=== PATIENT | female | born 1990 | race Caucasian/White ===

== ENCOUNTER 2017-02-11 09:55 | Emergency (ER) | payer MEDICAID ==
[~2017-02-11 09:55] MED LIST: ACETAMINOPHEN 160 MG PO; ALBUTEROL SULF8.5 G2 IH; APRISO0.375 G1 PO; ASACOL HD800 M1 PO; BENTYL20 M1 PO; CLINDAMYCIN HC300 M2 PO; FLAGYL500 M1 PO; HYDROCODON-ACE1 EA16 PO; IBUPROFEN600 M1 PO; LEVAQUIN500 M1 PO; LIALDA1.2 GM/TAB PO; LOPERAMIDE2 M2 PO; MOTRIN IB200 M1 PO; NORCO 5-325 TA1 EACH PO; OXYCODONE-ACET1 EAC3 PO; PERCOCET 5-3251 EACH PO; PREDNISONE10 M1; PREDNISONE10 M1 PO; PREDNISONE20 M1 PO; PREDNISONE5 M1 PO; PRENATAL1 EACH PO; PROAIR HFA8.5 GM IH; PROMETHAZINE-C118 ML PO; PROVENTIL HFA6.7 G1 INH; ULTRAM50 M1 PO; ZITHROMAX250 M1 PO; ZOFRAN ODT4 MG PO; ZOFRAN4 M2 PO; phenergan PO
[2017-02-11 09:56] LABS: URINE BILIRUBIN NEGATIVE (NEG); URINE BLOOD MODERATE (NEG); URINE GLUCOSE (UA) NEGATIVE (NEG); URINE KETONE NEGATIVE (NEG); URINE LEUKOCYTE ESTERASE POSITIVE (NEG); URINE NITRITE NEGATIVE (NEG); URINE PROTEIN SMALL (NEG); URINE SPECIFIC GRAVITY 1.015 (1.003-1.030)
[2017-02-11 09:57] LABS: URINE APPEARANCE HAZY; URINE COLOR YELLOW
[2017-02-11 09:57] LABS: BASO % 0.2 % (0-2); EOS % 1.5 % (0-7); EOSINOPHIL ABSOLUTE COUNT 0.2 tho/cmm (0.0-0.7); HCT-HEMATOCRIT 33.2 % (34.0-49.0); IMMATURE GRANULOCYTES ABSOLUTE 0.02 tho/cmm (0-0.03); IMMATURE GRANULOCYTES PERCENT 0.2 % (0-0.3); LYMPH % 16.8 % (20-45); LYMPH ABSOLUTE COUNT 1.9 tho/cmm (0.8-4.5); MCHC MEAN CORPUSCULAR HGB CONC 30.1 % (32.0-36.0); MCV (MEAN CELL VOLUME) 86.5 fl (82.0-96.0); MEAN PLATELET VOLUME 8.9 cmc (9.4-12.4); MONO % 6.2 % (0-12); MONOCYTE ABSOLUTE COUNT 0.7 tho/cmm (0.0-1.2); NEUTROPHIL ABSOLUTE COUNT 8.3 tho/cmm (1.6-8.0); NEUTROPHIL-AUTOMATED 8.3 tho/cmm (1.6-8.0); NEUTROPHILS % 75.1 % (40-80); PLATELET COUNT 338 tho/cmm (150-450); RED BLOOD COUNT 3.84 mil/cmm (4.00-5.20); RED CELL DISTRIBUTION WIDTH 16.1 % (12.4-16.4); WHITE BLOOD COUNT 11.1 tho/cmm (4.0-10.0)
[2017-02-11 10:03] LABS: URINE MUCUS 4+
[2017-02-11 10:05] LABS: PREGNANCY-SERUM NEGATIVE (NEGATIVE)
[2017-02-11 10:05] LABS: URINE AMORPHOUS 2+
[2017-02-11 10:11] LABS: ALB/GLOB RATIO 0.7 (0.8-2.0); ALBUMIN 2.9 g/dl (3.5-5.0); ALKALINE PHOSPHATASE 106 U/L (33-138); ALT/SGPT 19 U/L (12-78); ANION GAP 10 mmol/L (0-20); AST/SGOT 10 U/L (10-40); BILIRUBIN,TOTAL 0.3 mg/dl (0-1.5); BLOOD UREA NITROGEN 7 mg/dl (6-24); C-REACTIVE PROTEIN 4.8 mg/dl (0-0.9); CALCIUM 8.6 mg/dl (8.5-10.5); CARBON DIOXIDE-VENOUS 25 mmol/L (22-32); CHLORIDE 109 mmol/l (96-110); GLUCOSE 87 mg/dL (70-110); LIPASE 88 U/L (73-393); POTASSIUM 3.9 mmol/L (3.7-5.1); SODIUM 140 mmol/L (135-145); eGFR VALUE FOR BLACK 89 mL/Min
[2017-02-11] MEDS ORDERED: NORCO 5-325 TA1 EACH PO (11:49)
[2017-02-11] MEDS ORDERED: ZOFRAN4 M2 PO (11:49)
[2017-02-11] MEDS ORDERED: PREDNISONE10 M1 PO (11:49)
[2017-05-28] MEDS ORDERED: HYDROCODON-ACE1 EA16 PO (10:07)
[2017-05-28] MEDS ORDERED: ZOFRAN ODT4 MG PO ×2 (10:07→11:27)
[2017-05-28] MEDS ORDERED: RANITIDINE HCL150 M3 PO (10:07)
[2017-05-28] MEDS ORDERED: IBUPROFEN200 M2 PO (10:08)
[2017-06-13] MEDS ORDERED: NORCO 7.5-3251 EACH PO (13:58)
[2017-06-13] MEDS ORDERED: CIPRO500 M2 PO (13:58)
[2017-06-20] MEDS ORDERED: PROMETHAZINE HC25 M3 PO (13:43)
[2017-06-22] MEDS ORDERED: IBUPROFEN600 M1 PO (10:40)
[2017-07-02] MEDS ORDERED: PROMETHAZINE HC25 M3 PO (14:34)
[2017-07-23] MEDS ORDERED: NITROFURANTOIN100 MG PO (12:27)
[2017-08-01] MEDS ORDERED: DELTASONE20 MG PO (10:29)
[2017-08-08] MEDS ORDERED: NAPROXEN375 M1 PO (16:39)
[2017-08-08] MEDS ORDERED: IMURAN50 M1 PO (16:41)
[2017-08-08] MEDS ORDERED: PREDNISONE5 M1 PO (16:43)
[2017-08-08] MEDS ORDERED: COLESTIPOL HCL1 G2 PO (16:45)
== END 2017-02-11 12:05 ==
LOC: EDMED 09:55
PROVIDERS: Emergency Medicine
DX: K92.1 Melena (principal); R19.7 Diarrhea, unspecified; F17.210 Nicotine dependence, cigarettes, uncomplicated; Z90.49 Acquired absence of other specified parts of digestive tract
CPT/HCPCS: J1170; J2405; J7030; P9612

== ENCOUNTER 2017-02-19 09:57 | Emergency (ER) | payer MEDICAID ==
[2017-02-19 10:51] LABS: EOS % 0.1 % (0-7); HCT-HEMATOCRIT 40.1 % (34.0-49.0); HGB-HEMOGLOBIN 12.4 gm/dl (12.0-15.5); IMMATURE GRANULOCYTES PERCENT 0.7 % (0-0.3); LYMPH % 7.6 % (20-45); MCH (MEAN CORPUSCULAR HGB) 25.9 pg (28.0-32.0); MCHC MEAN CORPUSCULAR HGB CONC 30.9 % (32.0-36.0); MCV (MEAN CELL VOLUME) 83.7 fl (82.0-96.0); MEAN PLATELET VOLUME 9.1 cmc (9.4-12.4); MONOCYTE ABSOLUTE COUNT 1.1 tho/cmm (0.0-1.2); NEUTROPHIL ABSOLUTE COUNT 11.2 tho/cmm (1.6-8.0); NEUTROPHIL-AUTOMATED 11.2 tho/cmm (1.6-8.0); NEUTROPHILS % 83.6 % (40-80); PLATELET COUNT 381 tho/cmm (150-450); RED BLOOD COUNT 4.79 mil/cmm (4.00-5.20); RED CELL DISTRIBUTION WIDTH 15.9 % (12.4-16.4); WHITE BLOOD COUNT 13.4 tho/cmm (4.0-10.0)
[2017-02-19 11:05] LABS: PREGNANCY-SERUM NEGATIVE (NEGATIVE)
[2017-02-19 11:47] LABS: ANION GAP 16 mmol/L (0-20); BLOOD UREA NITROGEN 12 mg/dl (6-24); CALCIUM 9.6 mg/dl (8.5-10.5); CARBON DIOXIDE-VENOUS 23 mmol/L (22-32); CHLORIDE 104 mmol/l (96-110); CREATININE 1.09 mg/dl (0.50-1.10); GLUCOSE 102 mg/dL (70-110); POTASSIUM 4.3 mmol/L (3.7-5.1); SODIUM 139 mmol/L (135-145); eGFR VALUE FOR BLACK 81 mL/Min
[2017-05-28] MEDS ORDERED: RANITIDINE HCL150 M3 PO (10:07)
[2017-05-28] MEDS ORDERED: ZOFRAN ODT4 MG PO ×2 (10:07→11:27)
[2017-05-28] MEDS ORDERED: HYDROCODON-ACE1 EA16 PO (10:07)
[2017-05-28] MEDS ORDERED: IBUPROFEN200 M2 PO (10:08)
[2017-06-13] MEDS ORDERED: CIPRO500 M2 PO (13:58)
[2017-06-13] MEDS ORDERED: NORCO 7.5-3251 EACH PO (13:58)
[2017-06-20] MEDS ORDERED: PROMETHAZINE HC25 M3 PO (13:43)
[2017-06-22] MEDS ORDERED: IBUPROFEN600 M1 PO (10:40)
[2017-07-02] MEDS ORDERED: PROMETHAZINE HC25 M3 PO (14:34)
[2017-07-23] MEDS ORDERED: NITROFURANTOIN100 MG PO (12:27)
[2017-08-01] MEDS ORDERED: DELTASONE20 MG PO (10:29)
[2017-08-08] MEDS ORDERED: NAPROXEN375 M1 PO (16:39)
[2017-08-08] MEDS ORDERED: IMURAN50 M1 PO (16:41)
[2017-08-08] MEDS ORDERED: PREDNISONE5 M1 PO (16:43)
[2017-08-08] MEDS ORDERED: COLESTIPOL HCL1 G2 PO (16:45)
== END 2017-02-19 12:57 ==
LOC: EDMED 09:57
PROVIDERS: Emergency Medicine
DX: G43.909 Migraine, unspecified, not intractable, without status migrainosus (principal); J45.909 Unspecified asthma, uncomplicated
CPT/HCPCS: J0780; J1200; J7030

== ENCOUNTER 2017-02-26 09:39 | Emergency (ER) | payer MEDICAID ==
[2017-02-26 10:28] LABS: BASO % 0.1 % (0-2); EOS % 0.1 % (0-7); HCT-HEMATOCRIT 38.2 % (34.0-49.0); HGB-HEMOGLOBIN 11.9 gm/dl (12.0-15.5); IMMATURE GRANULOCYTES PERCENT 0.6 % (0-0.3); LYMPH % 18.4 % (20-45); LYMPH ABSOLUTE COUNT 2.9 tho/cmm (0.8-4.5); MCH (MEAN CORPUSCULAR HGB) 25.8 pg (28.0-32.0); MCHC MEAN CORPUSCULAR HGB CONC 31.2 % (32.0-36.0); MCV (MEAN CELL VOLUME) 82.7 fl (82.0-96.0); MEAN PLATELET VOLUME 9.2 cmc (9.4-12.4); MONO % 5.1 % (0-12); MONOCYTE ABSOLUTE COUNT 0.8 tho/cmm (0.0-1.2); NEUTROPHIL ABSOLUTE COUNT 12.1 tho/cmm (1.6-8.0); NEUTROPHIL-AUTOMATED 12.1 tho/cmm (1.6-8.0); NEUTROPHILS % 75.7 % (40-80); PLATELET COUNT 430 tho/cmm (150-450); RED BLOOD COUNT 4.62 mil/cmm (4.00-5.20); RED CELL DISTRIBUTION WIDTH 15.8 % (12.4-16.4)
[2017-02-26 10:30] LABS: ALB/GLOB RATIO 0.8 (0.8-2.0); ALBUMIN 3.4 g/dl (3.5-5.0); ALKALINE PHOSPHATASE 133 U/L (33-138); ALT/SGPT 101 U/L (12-78); ANION GAP 14 mmol/L (0-20); AST/SGOT 28 U/L (10-40); BILIRUBIN,TOTAL 0.5 mg/dl (0-1.5); BLOOD UREA NITROGEN 15 mg/dl (6-24); CALCIUM 9.3 mg/dl (8.5-10.5); CARBON DIOXIDE-VENOUS 23 mmol/L (22-32); CHLORIDE 105 mmol/l (96-110); CREATININE 0.98 mg/dl (0.50-1.10); GLUCOSE 119 mg/dL (70-110); LIPASE 96 U/L (73-393); POTASSIUM 3.6 mmol/L (3.7-5.1); PREGNANCY-SERUM NEGATIVE (NEGATIVE); SODIUM 138 mmol/L (135-145); eGFR VALUE FOR BLACK >90 mL/Min
[2017-02-26] MEDS ORDERED: ULTRAM50 M1 PO (11:12)
[2017-05-28] MEDS ORDERED: RANITIDINE HCL150 M3 PO (10:07)
[2017-05-28] MEDS ORDERED: HYDROCODON-ACE1 EA16 PO (10:07)
[2017-05-28] MEDS ORDERED: ZOFRAN ODT4 MG PO ×2 (10:07→11:27)
[2017-05-28] MEDS ORDERED: IBUPROFEN200 M2 PO (10:08)
[2017-06-13] MEDS ORDERED: NORCO 7.5-3251 EACH PO (13:58)
[2017-06-13] MEDS ORDERED: CIPRO500 M2 PO (13:58)
[2017-06-20] MEDS ORDERED: PROMETHAZINE HC25 M3 PO (13:43)
[2017-06-22] MEDS ORDERED: IBUPROFEN600 M1 PO (10:40)
[2017-07-02] MEDS ORDERED: PROMETHAZINE HC25 M3 PO (14:34)
[2017-07-23] MEDS ORDERED: NITROFURANTOIN100 MG PO (12:27)
[2017-08-01] MEDS ORDERED: DELTASONE20 MG PO (10:29)
[2017-08-08] MEDS ORDERED: NAPROXEN375 M1 PO (16:39)
[2017-08-08] MEDS ORDERED: IMURAN50 M1 PO (16:41)
[2017-08-08] MEDS ORDERED: PREDNISONE5 M1 PO (16:43)
[2017-08-08] MEDS ORDERED: COLESTIPOL HCL1 G2 PO (16:45)
== END 2017-02-26 11:58 ==
LOC: EDMED 09:39
PROVIDERS: Emergency Medicine
DX: K51.90 Ulcerative colitis, unspecified, without complications (principal); F17.210 Nicotine dependence, cigarettes, uncomplicated; Z90.49 Acquired absence of other specified parts of digestive tract
CPT/HCPCS: J1885; J2405; J7030

== ENCOUNTER 2017-03-07 09:12 | Emergency (ER) | payer MEDICAID ==
[2017-03-07] MEDS ORDERED: COLESTID1 GM PO (09:27)
[2017-03-07] MEDS ORDERED: ULTRAM50 M1 PO (09:28)
[2017-03-07] MEDS ORDERED: PERIDEX118 ML SSP (09:29)
[2017-03-07 10:16] LABS: URINE BILIRUBIN NEGATIVE (NEG); URINE BLOOD NEGATIVE (NEG); URINE GLUCOSE (UA) NEGATIVE (NEG); URINE KETONE NEGATIVE (NEG); URINE LEUKOCYTE ESTERASE POSITIVE (NEG); URINE NITRITE NEGATIVE (NEG); URINE PH 6.5 (5.0-8.0); URINE PROTEIN NEGATIVE (NEG); URINE SPECIFIC GRAVITY 1.015 (1.003-1.030)
[2017-03-07 10:17] LABS: BASO % 0.2 % (0-2); EOS % 0.7 % (0-7); EOSINOPHIL ABSOLUTE COUNT 0.1 tho/cmm (0.0-0.7); HCT-HEMATOCRIT 40.8 % (34.0-49.0); HGB-HEMOGLOBIN 12.8 gm/dl (12.0-15.5); IMMATURE GRANULOCYTES ABSOLUTE 0.05 tho/cmm (0-0.03); IMMATURE GRANULOCYTES PERCENT 0.3 % (0-0.3); LYMPH % 17.5 % (20-45); LYMPH ABSOLUTE COUNT 2.7 tho/cmm (0.8-4.5); MCHC MEAN CORPUSCULAR HGB CONC 31.4 % (32.0-36.0); MCV (MEAN CELL VOLUME) 82.8 fl (82.0-96.0); MEAN PLATELET VOLUME 8.9 cmc (9.4-12.4); MONO % 8.3 % (0-12); MONOCYTE ABSOLUTE COUNT 1.3 tho/cmm (0.0-1.2); NEUTROPHIL ABSOLUTE COUNT 11.2 tho/cmm (1.6-8.0); NEUTROPHIL-AUTOMATED 11.2 tho/cmm (1.6-8.0); PLATELET COUNT 399 tho/cmm (150-450); RED BLOOD COUNT 4.93 mil/cmm (4.00-5.20); RED CELL DISTRIBUTION WIDTH 16.9 % (12.4-16.4); URINE APPEARANCE CLEAR; URINE COLOR YELLOW; WHITE BLOOD COUNT 15.3 tho/cmm (4.0-10.0)
[2017-03-07 10:27] LABS: URINE RBC 0 /[HPF] (0-5); URINE WBC 0-4 /[HPF] (0-5)
[2017-03-07 10:28] LABS: ANION GAP 12 mmol/L (0-20); BLOOD UREA NITROGEN 10 mg/dl (6-24); CALCIUM 9.5 mg/dl (8.5-10.5); CARBON DIOXIDE-VENOUS 26 mmol/L (22-32); CHLORIDE 104 mmol/l (96-110); CREATININE 1.01 mg/dl (0.50-1.10); GLUCOSE 91 mg/dL (70-110); SODIUM 138 mmol/L (135-145); URINE BACTERIA 1+; URINE MUCUS 1+; eGFR VALUE FOR BLACK 88 mL/Min
[2017-03-07 10:36] LABS: POTASSIUM 4.4 mmol/L (3.7-5.1)
[2017-03-07] MEDS ORDERED: NORCO 5/3251 TAB PO (11:49)
[2017-03-07] MEDS ORDERED: ZOFRAN ODT4 MG PO (11:49)
[2017-05-28] MEDS ORDERED: RANITIDINE HCL150 M3 PO (10:07)
[2017-05-28] MEDS ORDERED: HYDROCODON-ACE1 EA16 PO (10:07)
[2017-05-28] MEDS ORDERED: ZOFRAN ODT4 MG PO ×2 (10:07→11:27)
[2017-05-28] MEDS ORDERED: IBUPROFEN200 M2 PO (10:08)
[2017-06-13] MEDS ORDERED: NORCO 7.5-3251 EACH PO (13:58)
[2017-06-13] MEDS ORDERED: CIPRO500 M2 PO (13:58)
[2017-06-20] MEDS ORDERED: PROMETHAZINE HC25 M3 PO (13:43)
[2017-06-22] MEDS ORDERED: IBUPROFEN600 M1 PO (10:40)
[2017-07-02] MEDS ORDERED: PROMETHAZINE HC25 M3 PO (14:34)
[2017-07-23] MEDS ORDERED: NITROFURANTOIN100 MG PO (12:27)
[2017-08-01] MEDS ORDERED: DELTASONE20 MG PO (10:29)
[2017-08-08] MEDS ORDERED: NAPROXEN375 M1 PO (16:39)
[2017-08-08] MEDS ORDERED: IMURAN50 M1 PO (16:41)
[2017-08-08] MEDS ORDERED: PREDNISONE5 M1 PO (16:43)
[2017-08-08] MEDS ORDERED: COLESTIPOL HCL1 G2 PO (16:45)
== END 2017-03-07 12:19 ==
LOC: EDMED 09:12
PROVIDERS: Emergency Medicine
DX: K50.90 Crohn's disease, unspecified, without complications (principal); R11.2 Nausea with vomiting, unspecified; K92.1 Melena; F17.210 Nicotine dependence, cigarettes, uncomplicated; Z90.49 Acquired absence of other specified parts of digestive tract
CPT/HCPCS: J1170; J2405; J7030

== ENCOUNTER 2017-03-15 09:02 | Emergency (ER) | payer MEDICAID ==
[~2017-03-15 09:02] MED LIST changes: +COLESTID1 GM PO; +NORCO 5/3251 TAB PO; +PERIDEX118 ML SSP
[2017-03-15] MEDS ORDERED: REMICADE100 MG IV (09:15)
[2017-03-15 10:11] LABS: BASO % 0.2 % (0-2); EOS % 2.3 % (0-7); EOSINOPHIL ABSOLUTE COUNT 0.2 tho/cmm (0.0-0.7); HCT-HEMATOCRIT 35.5 % (34.0-49.0); HGB-HEMOGLOBIN 11.3 gm/dl (12.0-15.5); IMMATURE GRANULOCYTES ABSOLUTE 0.04 tho/cmm (0-0.03); IMMATURE GRANULOCYTES PERCENT 0.5 % (0-0.3); LYMPH % 39.7 % (20-45); LYMPH ABSOLUTE COUNT 3.2 tho/cmm (0.8-4.5); MCHC MEAN CORPUSCULAR HGB CONC 31.8 % (32.0-36.0); MCV (MEAN CELL VOLUME) 81.8 fl (82.0-96.0); MEAN PLATELET VOLUME 8.9 cmc (9.4-12.4); MONO % 5.5 % (0-12); MONOCYTE ABSOLUTE COUNT 0.5 tho/cmm (0.0-1.2); NEUTROPHIL ABSOLUTE COUNT 4.2 tho/cmm (1.6-8.0); NEUTROPHIL-AUTOMATED 4.2 tho/cmm (1.6-8.0); NEUTROPHILS % 51.8 % (40-80); PLATELET COUNT 353 tho/cmm (150-450); RED BLOOD COUNT 4.34 mil/cmm (4.00-5.20); RED CELL DISTRIBUTION WIDTH 16.5 % (12.4-16.4); WHITE BLOOD COUNT 8.1 tho/cmm (4.0-10.0)
[2017-03-15 10:25] LABS: PREGNANCY-SERUM NEGATIVE (NEGATIVE)
[2017-03-15 10:27] LABS: ALB/GLOB RATIO 0.8 (0.8-2.0); ALBUMIN 3.4 g/dl (3.5-5.0); ALKALINE PHOSPHATASE 114 U/L (33-138); ALT/SGPT 32 U/L (12-78); ANION GAP 10 mmol/L (0-20); AST/SGOT 13 U/L (10-40); BILIRUBIN,TOTAL 0.2 mg/dl (0-1.5); BLOOD UREA NITROGEN 8 mg/dl (6-24); CALCIUM 9.3 mg/dl (8.5-10.5); CARBON DIOXIDE-VENOUS 27 mmol/L (22-32); CHLORIDE 109 mmol/l (96-110); CREATININE 0.85 mg/dl (0.50-1.10); GLUCOSE 109 mg/dL (70-110); LIPASE 94 U/L (73-393); SODIUM 142 mmol/L (135-145); eGFR VALUE FOR BLACK >90 mL/Min
[2017-03-15 10:42] LABS: URINE BILIRUBIN NEGATIVE (NEG); URINE BLOOD NEGATIVE (NEG); URINE GLUCOSE (UA) NEGATIVE (NEG); URINE KETONE NEGATIVE (NEG); URINE LEUKOCYTE ESTERASE POSITIVE (NEG); URINE NITRITE NEGATIVE (NEG); URINE PROTEIN NEGATIVE (NEG); URINE SPECIFIC GRAVITY 1.015 (1.003-1.030)
[2017-03-15 10:45] LABS: URINE APPEARANCE CLEAR; URINE COLOR YELLOW
[2017-03-15 10:48] LABS: URINE WBC RARE /[HPF] (0-5)
[2017-03-15 10:49] LABS: URINE BACTERIA 1+; URINE EPITHELIAL CELLS 0-3 /[HPF] (0-10)
[2017-03-15] MEDS ORDERED: PREDNISONE10 M1 PO (12:53)
[2017-03-15] MEDS ORDERED: NORCO 5-325 TA1 EACH PO (12:53)
[2017-05-28] MEDS ORDERED: HYDROCODON-ACE1 EA16 PO (10:07)
[2017-05-28] MEDS ORDERED: RANITIDINE HCL150 M3 PO (10:07)
[2017-05-28] MEDS ORDERED: ZOFRAN ODT4 MG PO ×2 (10:07→11:27)
[2017-05-28] MEDS ORDERED: IBUPROFEN200 M2 PO (10:08)
[2017-06-13] MEDS ORDERED: CIPRO500 M2 PO (13:58)
[2017-06-13] MEDS ORDERED: NORCO 7.5-3251 EACH PO (13:58)
[2017-06-20] MEDS ORDERED: PROMETHAZINE HC25 M3 PO (13:43)
[2017-06-22] MEDS ORDERED: IBUPROFEN600 M1 PO (10:40)
[2017-07-02] MEDS ORDERED: PROMETHAZINE HC25 M3 PO (14:34)
[2017-07-23] MEDS ORDERED: NITROFURANTOIN100 MG PO (12:27)
[2017-08-01] MEDS ORDERED: DELTASONE20 MG PO (10:29)
[2017-08-08] MEDS ORDERED: NAPROXEN375 M1 PO (16:39)
[2017-08-08] MEDS ORDERED: IMURAN50 M1 PO (16:41)
[2017-08-08] MEDS ORDERED: PREDNISONE5 M1 PO (16:43)
[2017-08-08] MEDS ORDERED: COLESTIPOL HCL1 G2 PO (16:45)
== END 2017-03-15 13:11 ==
LOC: EDMED 09:02
PROVIDERS: Emergency Medicine
DX: K50.90 Crohn's disease, unspecified, without complications (principal); J45.909 Unspecified asthma, uncomplicated; Z90.49 Acquired absence of other specified parts of digestive tract; Z79.51 Long term (current) use of inhaled steroids; Z79.899 Other long term (current) drug therapy; F17.200 Nicotine dependence, unspecified, uncomplicated
CPT/HCPCS: J1170; J2405; J7030; Q9967

== ENCOUNTER 2017-03-26 09:03 | Emergency (ER) | payer MEDICAID ==
[~2017-03-26 09:03] MED LIST changes: +REMICADE100 MG IV
[2017-03-26 09:39] LABS: URINE BILIRUBIN NEGATIVE (NEG); URINE BLOOD NEGATIVE (NEG); URINE GLUCOSE (UA) NEGATIVE (NEG); URINE KETONE NEGATIVE (NEG); URINE LEUKOCYTE ESTERASE POSITIVE (NEG); URINE NITRITE NEGATIVE (NEG); URINE PROTEIN NEGATIVE (NEG)
[2017-03-26 09:43] LABS: BASO % 0.6 % (0-2); BASO ABSOLUTE COUNT 0.1 tho/cmm (0.0-0.2); EOS % 1.6 % (0-7); EOSINOPHIL ABSOLUTE COUNT 0.1 tho/cmm (0.0-0.7); HCT-HEMATOCRIT 39.3 % (34.0-49.0); HGB-HEMOGLOBIN 12.5 gm/dl (12.0-15.5); LYMPH % 31.4 % (20-45); LYMPH ABSOLUTE COUNT 2.7 tho/cmm (0.8-4.5); MCH (MEAN CORPUSCULAR HGB) 26.2 pg (28.0-32.0); MCHC MEAN CORPUSCULAR HGB CONC 31.8 % (32.0-36.0); MCV (MEAN CELL VOLUME) 82.2 fl (82.0-96.0); MEAN PLATELET VOLUME 9.5 cmc (9.4-12.4); MONO % 7.1 % (0-12); MONOCYTE ABSOLUTE COUNT 0.6 tho/cmm (0.0-1.2); NEUTROPHIL ABSOLUTE COUNT 5.1 tho/cmm (1.6-8.0); NEUTROPHIL-AUTOMATED 5.1 tho/cmm (1.6-8.0); NEUTROPHILS % 59.3 % (40-80); PLATELET COUNT 407 tho/cmm (150-450); RED BLOOD COUNT 4.78 mil/cmm (4.00-5.20); RED CELL DISTRIBUTION WIDTH 16.4 % (12.4-16.4); WHITE BLOOD COUNT 8.6 tho/cmm (4.0-10.0)
[2017-03-26 09:46] LABS: URINE APPEARANCE CLEAR; URINE COLOR YELLOW
[2017-03-26 09:53] LABS: URINE BACTERIA 1+; URINE RBC 0 /[HPF] (0-5)
[2017-03-26 10:08] LABS: ANION GAP 14 mmol/L (0-20); BLOOD UREA NITROGEN 8 mg/dl (6-24); CALCIUM 9.5 mg/dl (8.5-10.5); CARBON DIOXIDE-VENOUS 27 mmol/L (22-32); CHLORIDE 106 mmol/l (96-110); CREATININE 1.03 mg/dl (0.50-1.10); GLUCOSE 93 mg/dL (70-110); POTASSIUM 4.5 mmol/L (3.7-5.1); SODIUM 142 mmol/L (135-145); eGFR VALUE FOR BLACK 86 mL/Min
[2017-03-26] MEDS ORDERED: ZOFRAN ODT4 MG PO (10:23)
[2017-05-28] MEDS ORDERED: ZOFRAN ODT4 MG PO ×2 (10:07→11:27)
[2017-05-28] MEDS ORDERED: RANITIDINE HCL150 M3 PO (10:07)
[2017-05-28] MEDS ORDERED: HYDROCODON-ACE1 EA16 PO (10:07)
[2017-05-28] MEDS ORDERED: IBUPROFEN200 M2 PO (10:08)
[2017-06-13] MEDS ORDERED: NORCO 7.5-3251 EACH PO (13:58)
[2017-06-13] MEDS ORDERED: CIPRO500 M2 PO (13:58)
[2017-06-20] MEDS ORDERED: PROMETHAZINE HC25 M3 PO (13:43)
[2017-06-22] MEDS ORDERED: IBUPROFEN600 M1 PO (10:40)
[2017-07-02] MEDS ORDERED: PROMETHAZINE HC25 M3 PO (14:34)
[2017-07-23] MEDS ORDERED: NITROFURANTOIN100 MG PO (12:27)
[2017-08-01] MEDS ORDERED: DELTASONE20 MG PO (10:29)
[2017-08-08] MEDS ORDERED: NAPROXEN375 M1 PO (16:39)
[2017-08-08] MEDS ORDERED: IMURAN50 M1 PO (16:41)
[2017-08-08] MEDS ORDERED: PREDNISONE5 M1 PO (16:43)
[2017-08-08] MEDS ORDERED: COLESTIPOL HCL1 G2 PO (16:45)
== END 2017-03-26 10:37 ==
LOC: EDMED 09:03
PROVIDERS: Emergency Medicine
DX: R42 Dizziness and giddiness (principal); R11.0 Nausea; R06.02 Shortness of breath; J45.909 Unspecified asthma, uncomplicated; F17.210 Nicotine dependence, cigarettes, uncomplicated; Z79.51 Long term (current) use of inhaled steroids
CPT/HCPCS: J2405; J7030

== ENCOUNTER 2017-04-02 09:53 | Emergency (ER) | payer MEDICAID ==
[2017-04-02 10:19] LABS: URINE APPEARANCE CLEAR; URINE BILIRUBIN NEGATIVE (NEG); URINE BLOOD SMALL (NEG); URINE COLOR DARK YELLOW; URINE GLUCOSE (UA) NEGATIVE (NEG); URINE KETONE NEGATIVE (NEG); URINE LEUKOCYTE ESTERASE NEGATIVE (NEG); URINE NITRITE NEGATIVE (NEG); URINE PROTEIN NEGATIVE (NEG); URINE SPECIFIC GRAVITY 1.025 (1.003-1.030)
[2017-04-02 10:27] LABS: URINE BACTERIA 1+
[2017-04-02 12:01] LABS: BASO % 0.2 % (0-2); EOS % 1.6 % (0-7); EOSINOPHIL ABSOLUTE COUNT 0.1 tho/cmm (0.0-0.7); HGB-HEMOGLOBIN 12.2 gm/dl (12.0-15.5); IMMATURE GRANULOCYTES ABSOLUTE 0.01 tho/cmm (0-0.03); IMMATURE GRANULOCYTES PERCENT 0.1 % (0-0.3); LYMPH % 32.9 % (20-45); LYMPH ABSOLUTE COUNT 2.7 tho/cmm (0.8-4.5); MCH (MEAN CORPUSCULAR HGB) 25.6 pg (28.0-32.0); MCHC MEAN CORPUSCULAR HGB CONC 31.3 % (32.0-36.0); MCV (MEAN CELL VOLUME) 81.8 fl (82.0-96.0); MEAN PLATELET VOLUME 9.7 cmc (9.4-12.4); MONOCYTE ABSOLUTE COUNT 0.6 tho/cmm (0.0-1.2); NEUTROPHIL ABSOLUTE COUNT 4.8 tho/cmm (1.6-8.0); NEUTROPHIL-AUTOMATED 4.8 tho/cmm (1.6-8.0); NEUTROPHILS % 58.2 % (40-80); PLATELET COUNT 367 tho/cmm (150-450); RED BLOOD COUNT 4.77 mil/cmm (4.00-5.20); RED CELL DISTRIBUTION WIDTH 16.6 % (12.4-16.4); WHITE BLOOD COUNT 8.2 tho/cmm (4.0-10.0)
[2017-04-02 12:15] LABS: ALBUMIN 3.9 g/dl (3.5-5.0); ALKALINE PHOSPHATASE 123 U/L (33-138); ALT/SGPT 41 U/L (12-78); ANION GAP 13 mmol/L (0-20); AST/SGOT 24 U/L (10-40); BILIRUBIN,TOTAL 0.3 mg/dl (0-1.5); BLOOD UREA NITROGEN 6 mg/dl (6-24); CALCIUM 9.4 mg/dl (8.5-10.5); CARBON DIOXIDE-VENOUS 23 mmol/L (22-32); CHLORIDE 107 mmol/l (96-110); CREATININE 0.86 mg/dl (0.50-1.10); GLUCOSE 90 mg/dL (70-110); LIPASE 82 U/L (73-393); SODIUM 139 mmol/L (135-145); eGFR VALUE FOR BLACK >90 mL/Min
[2017-04-02] MEDS ORDERED: NORCO 5-325 TA1 EACH PO (14:08)
[2017-05-28] MEDS ORDERED: HYDROCODON-ACE1 EA16 PO (10:07)
[2017-05-28] MEDS ORDERED: ZOFRAN ODT4 MG PO ×2 (10:07→11:27)
[2017-05-28] MEDS ORDERED: RANITIDINE HCL150 M3 PO (10:07)
[2017-05-28] MEDS ORDERED: IBUPROFEN200 M2 PO (10:08)
[2017-06-13] MEDS ORDERED: CIPRO500 M2 PO (13:58)
[2017-06-13] MEDS ORDERED: NORCO 7.5-3251 EACH PO (13:58)
[2017-06-20] MEDS ORDERED: PROMETHAZINE HC25 M3 PO (13:43)
[2017-06-22] MEDS ORDERED: IBUPROFEN600 M1 PO (10:40)
[2017-07-02] MEDS ORDERED: PROMETHAZINE HC25 M3 PO (14:34)
[2017-07-23] MEDS ORDERED: NITROFURANTOIN100 MG PO (12:27)
[2017-08-01] MEDS ORDERED: DELTASONE20 MG PO (10:29)
[2017-08-08] MEDS ORDERED: NAPROXEN375 M1 PO (16:39)
[2017-08-08] MEDS ORDERED: IMURAN50 M1 PO (16:41)
[2017-08-08] MEDS ORDERED: PREDNISONE5 M1 PO (16:43)
[2017-08-08] MEDS ORDERED: COLESTIPOL HCL1 G2 PO (16:45)
== END 2017-04-02 14:16 ==
LOC: EDMED 09:53
PROVIDERS: Emergency Medicine
DX: R10.9 Unspecified abdominal pain (principal); R11.0 Nausea; J45.909 Unspecified asthma, uncomplicated; Z90.49 Acquired absence of other specified parts of digestive tract; F17.200 Nicotine dependence, unspecified, uncomplicated; Z79.899 Other long term (current) drug therapy
CPT/HCPCS: J1170; J2405

== ENCOUNTER 2017-04-11 09:19 | Emergency (ER) | payer MEDICAID ==
[2017-04-11] MEDS ORDERED: PREDNISONE10 M1 PO (09:43)
[2017-04-11] MEDS ORDERED: CLARITIN10 M6 PO (09:43)
[2017-04-11] MEDS ORDERED: ZYRTEC10 M7 PO (09:43)
[2017-04-11 10:37] LABS: BASO % 0.3 % (0-2); EOS % 2.8 % (0-7); EOSINOPHIL ABSOLUTE COUNT 0.2 tho/cmm (0.0-0.7); HCT-HEMATOCRIT 36.8 % (34.0-49.0); HGB-HEMOGLOBIN 11.6 gm/dl (12.0-15.5); IMMATURE GRANULOCYTES ABSOLUTE 0.01 tho/cmm (0-0.03); IMMATURE GRANULOCYTES PERCENT 0.2 % (0-0.3); LYMPH % 35.9 % (20-45); LYMPH ABSOLUTE COUNT 2.2 tho/cmm (0.8-4.5); MCH (MEAN CORPUSCULAR HGB) 25.9 pg (28.0-32.0); MCHC MEAN CORPUSCULAR HGB CONC 31.5 % (32.0-36.0); MCV (MEAN CELL VOLUME) 82.1 fl (82.0-96.0); MEAN PLATELET VOLUME 9.4 cmc (9.4-12.4); MONO % 5.7 % (0-12); MONOCYTE ABSOLUTE COUNT 0.3 tho/cmm (0.0-1.2); NEUTROPHIL ABSOLUTE COUNT 3.3 tho/cmm (1.6-8.0); NEUTROPHIL-AUTOMATED 3.3 tho/cmm (1.6-8.0); NEUTROPHILS % 55.1 % (40-80); PLATELET COUNT 278 tho/cmm (150-450); RED BLOOD COUNT 4.48 mil/cmm (4.00-5.20); RED CELL DISTRIBUTION WIDTH 16.8 % (12.4-16.4)
[2017-04-11 10:53] LABS: ALBUMIN 3.5 g/dl (3.5-5.0); ALKALINE PHOSPHATASE 120 U/L (33-138); ALT/SGPT 27 U/L (12-78); ANION GAP 13 mmol/L (0-20); AST/SGOT 15 U/L (10-40); BILIRUBIN,TOTAL 0.3 mg/dl (0-1.5); BLOOD UREA NITROGEN 10 mg/dl (6-24); CALCIUM 8.7 mg/dl (8.5-10.5); CARBON DIOXIDE-VENOUS 24 mmol/L (22-32); CHLORIDE 109 mmol/l (96-110); CREATININE 0.92 mg/dl (0.50-1.10); GLUCOSE 92 mg/dL (70-110); SODIUM 142 mmol/L (135-145); eGFR VALUE FOR BLACK >90 mL/Min
[2017-04-11] MEDS ORDERED: NORCO 5-325 TA1 EACH PO (12:40)
[2017-05-28] MEDS ORDERED: RANITIDINE HCL150 M3 PO (10:07)
[2017-05-28] MEDS ORDERED: HYDROCODON-ACE1 EA16 PO (10:07)
[2017-05-28] MEDS ORDERED: ZOFRAN ODT4 MG PO ×2 (10:07→11:27)
[2017-05-28] MEDS ORDERED: IBUPROFEN200 M2 PO (10:08)
[2017-06-13] MEDS ORDERED: NORCO 7.5-3251 EACH PO (13:58)
[2017-06-13] MEDS ORDERED: CIPRO500 M2 PO (13:58)
[2017-06-20] MEDS ORDERED: PROMETHAZINE HC25 M3 PO (13:43)
[2017-06-22] MEDS ORDERED: IBUPROFEN600 M1 PO (10:40)
[2017-07-02] MEDS ORDERED: PROMETHAZINE HC25 M3 PO (14:34)
[2017-07-23] MEDS ORDERED: NITROFURANTOIN100 MG PO (12:27)
[2017-08-01] MEDS ORDERED: DELTASONE20 MG PO (10:29)
[2017-08-08] MEDS ORDERED: NAPROXEN375 M1 PO (16:39)
[2017-08-08] MEDS ORDERED: IMURAN50 M1 PO (16:41)
[2017-08-08] MEDS ORDERED: PREDNISONE5 M1 PO (16:43)
[2017-08-08] MEDS ORDERED: COLESTIPOL HCL1 G2 PO (16:45)
== END 2017-04-11 12:52 ==
LOC: EDMED 09:19
PROVIDERS: Family Medicine
DX: K50.90 Crohn's disease, unspecified, without complications (principal); R07.89 Other chest pain; K21.9 Gastro-esophageal reflux disease without esophagitis; F17.210 Nicotine dependence, cigarettes, uncomplicated; Z90.49 Acquired absence of other specified parts of digestive tract; Z79.899 Other long term (current) drug therapy; Z88.0 Allergy status to penicillin; Z88.8 Allergy status to other drugs, medicaments and biological substances
CPT/HCPCS: J1170; J2405; J7030; Q9967

== ENCOUNTER 2017-04-23 09:39 | Emergency (ER) | payer MEDICAID ==
[~2017-04-23 09:39] MED LIST changes: +CLARITIN10 M6 PO; +ZYRTEC10 M7 PO
[2017-04-23 10:20] LABS: BASO % 0.5 % (0-2); EOS % 4.2 % (0-7); EOSINOPHIL ABSOLUTE COUNT 0.2 tho/cmm (0.0-0.7); HCT-HEMATOCRIT 40.2 % (34.0-49.0); HGB-HEMOGLOBIN 12.7 gm/dl (12.0-15.5); IMMATURE GRANULOCYTES ABSOLUTE 0.01 tho/cmm (0-0.03); IMMATURE GRANULOCYTES PERCENT 0.2 % (0-0.3); LYMPH % 42.2 % (20-45); LYMPH ABSOLUTE COUNT 2.4 tho/cmm (0.8-4.5); MCH (MEAN CORPUSCULAR HGB) 26.1 pg (28.0-32.0); MCHC MEAN CORPUSCULAR HGB CONC 31.6 % (32.0-36.0); MCV (MEAN CELL VOLUME) 82.7 fl (82.0-96.0); MEAN PLATELET VOLUME 9.8 cmc (9.4-12.4); MONO % 8.3 % (0-12); MONOCYTE ABSOLUTE COUNT 0.5 tho/cmm (0.0-1.2); NEUTROPHIL ABSOLUTE COUNT 2.6 tho/cmm (1.6-8.0); NEUTROPHIL-AUTOMATED 2.6 tho/cmm (1.6-8.0); NEUTROPHILS % 44.6 % (40-80); PLATELET COUNT 339 tho/cmm (150-450); RED BLOOD COUNT 4.86 mil/cmm (4.00-5.20); RED CELL DISTRIBUTION WIDTH 15.8 % (12.4-16.4); WHITE BLOOD COUNT 5.8 tho/cmm (4.0-10.0)
[2017-04-23 10:30] LABS: ALBUMIN 3.6 g/dl (3.5-5.0); ALKALINE PHOSPHATASE 130 U/L (33-138); ALT/SGPT 46 U/L (12-78); ANION GAP 16 mmol/L (0-20); AST/SGOT 31 U/L (10-40); BILIRUBIN,TOTAL 0.3 mg/dl (0-1.5); BLOOD UREA NITROGEN 6 mg/dl (6-24); C-REACTIVE PROTEIN 0.4 mg/dl (0-0.9); CALCIUM 8.6 mg/dl (8.5-10.5); CARBON DIOXIDE-VENOUS 22 mmol/L (22-32); CHLORIDE 108 mmol/l (96-110); CREATININE 0.99 mg/dl (0.50-1.10); GLUCOSE 107 mg/dL (70-110); LIPASE 70 U/L (73-393); POTASSIUM 4.1 mmol/L (3.7-5.1); SODIUM 142 mmol/L (135-145); eGFR VALUE FOR BLACK >90 mL/Min
[2017-04-23 10:36] LABS: URINE BILIRUBIN NEGATIVE (NEG); URINE BLOOD SMALL (NEG); URINE GLUCOSE (UA) NEGATIVE (NEG); URINE KETONE NEGATIVE (NEG); URINE LEUKOCYTE ESTERASE POSITIVE (NEG); URINE NITRITE NEGATIVE (NEG); URINE PH 6.5 (5.0-8.0); URINE PROTEIN NEGATIVE (NEG)
[2017-04-23 10:38] LABS: URINE APPEARANCE CLEAR; URINE COLOR YELLOW
[2017-04-23] MEDS ORDERED: ZOFRAN4 M2 PO (11:16)
[2017-04-23] MEDS ORDERED: NORCO 5-325 TA1 EACH PO (11:16)
[2017-05-28] MEDS ORDERED: ZOFRAN ODT4 MG PO ×2 (10:07→11:27)
[2017-05-28] MEDS ORDERED: RANITIDINE HCL150 M3 PO (10:07)
[2017-05-28] MEDS ORDERED: HYDROCODON-ACE1 EA16 PO (10:07)
[2017-05-28] MEDS ORDERED: IBUPROFEN200 M2 PO (10:08)
[2017-06-13] MEDS ORDERED: NORCO 7.5-3251 EACH PO (13:58)
[2017-06-13] MEDS ORDERED: CIPRO500 M2 PO (13:58)
[2017-06-20] MEDS ORDERED: PROMETHAZINE HC25 M3 PO (13:43)
[2017-06-22] MEDS ORDERED: IBUPROFEN600 M1 PO (10:40)
[2017-07-02] MEDS ORDERED: PROMETHAZINE HC25 M3 PO (14:34)
[2017-07-23] MEDS ORDERED: NITROFURANTOIN100 MG PO (12:27)
[2017-08-01] MEDS ORDERED: DELTASONE20 MG PO (10:29)
[2017-08-08] MEDS ORDERED: NAPROXEN375 M1 PO (16:39)
[2017-08-08] MEDS ORDERED: IMURAN50 M1 PO (16:41)
[2017-08-08] MEDS ORDERED: PREDNISONE5 M1 PO (16:43)
[2017-08-08] MEDS ORDERED: COLESTIPOL HCL1 G2 PO (16:45)
== END 2017-04-23 11:24 ==
LOC: EDMED 09:39
PROVIDERS: Emergency Medicine
DX: R10.9 Unspecified abdominal pain (principal); R11.2 Nausea with vomiting, unspecified; R19.7 Diarrhea, unspecified; F17.210 Nicotine dependence, cigarettes, uncomplicated; Z87.19 Personal history of other diseases of the digestive system; Z90.49 Acquired absence of other specified parts of digestive tract
CPT/HCPCS: J1170; J2405; J7030

== ENCOUNTER 2017-04-30 09:39 | Emergency (ER) | payer MEDICAID ==
[2017-04-30 10:37] LABS: BASO % 0.3 % (0-2); EOS % 2.8 % (0-7); EOSINOPHIL ABSOLUTE COUNT 0.2 tho/cmm (0.0-0.7); HGB-HEMOGLOBIN 12.7 gm/dl (12.0-15.5); IMMATURE GRANULOCYTES ABSOLUTE 0.01 tho/cmm (0-0.03); IMMATURE GRANULOCYTES PERCENT 0.2 % (0-0.3); LYMPH % 35.1 % (20-45); LYMPH ABSOLUTE COUNT 2.1 tho/cmm (0.8-4.5); MCH (MEAN CORPUSCULAR HGB) 26.5 pg (28.0-32.0); MCHC MEAN CORPUSCULAR HGB CONC 31.8 % (32.0-36.0); MCV (MEAN CELL VOLUME) 83.3 fl (82.0-96.0); MEAN PLATELET VOLUME 9.7 cmc (9.4-12.4); MONOCYTE ABSOLUTE COUNT 0.4 tho/cmm (0.0-1.2); NEUTROPHIL ABSOLUTE COUNT 3.3 tho/cmm (1.6-8.0); NEUTROPHIL-AUTOMATED 3.3 tho/cmm (1.6-8.0); NEUTROPHILS % 54.6 % (40-80); PLATELET COUNT 301 tho/cmm (150-450); RED CELL DISTRIBUTION WIDTH 15.7 % (12.4-16.4)
[2017-04-30 10:57] LABS: ANION GAP 12 mmol/L (0-20); BLOOD UREA NITROGEN 8 mg/dl (6-24); CALCIUM 9.3 mg/dl (8.5-10.5); CARBON DIOXIDE-VENOUS 25 mmol/L (22-32); CHLORIDE 107 mmol/l (96-110); CREATININE 1.01 mg/dl (0.50-1.10); GLUCOSE 108 mg/dL (70-110); POTASSIUM 4.1 mmol/L (3.7-5.1); SODIUM 140 mmol/L (135-145); eGFR VALUE FOR BLACK 88 mL/Min
[2017-04-30 11:30] LABS: ALBUMIN 3.7 g/dl (3.5-5.0); ALKALINE PHOSPHATASE 118 U/L (33-138); ALT/SGPT 64 U/L (12-78); AST/SGOT 38 U/L (10-40); BILIRUBIN,DIRECT <0.1 mg/dl (0.0-0.3); BILIRUBIN,INDIRECT 0.2 mg/dL (0.0-1.0); BILIRUBIN,TOTAL 0.3 mg/dl (0-1.5); LIPASE 84 U/L (73-393)
[2017-04-30] MEDS ORDERED: ZITHROMAX250 M1 PO (12:08)
[2017-05-28] MEDS ORDERED: RANITIDINE HCL150 M3 PO (10:07)
[2017-05-28] MEDS ORDERED: ZOFRAN ODT4 MG PO ×2 (10:07→11:27)
[2017-05-28] MEDS ORDERED: HYDROCODON-ACE1 EA16 PO (10:07)
[2017-05-28] MEDS ORDERED: IBUPROFEN200 M2 PO (10:08)
[2017-06-13] MEDS ORDERED: CIPRO500 M2 PO (13:58)
[2017-06-13] MEDS ORDERED: NORCO 7.5-3251 EACH PO (13:58)
[2017-06-20] MEDS ORDERED: PROMETHAZINE HC25 M3 PO (13:43)
[2017-06-22] MEDS ORDERED: IBUPROFEN600 M1 PO (10:40)
[2017-07-02] MEDS ORDERED: PROMETHAZINE HC25 M3 PO (14:34)
[2017-07-23] MEDS ORDERED: NITROFURANTOIN100 MG PO (12:27)
[2017-08-01] MEDS ORDERED: DELTASONE20 MG PO (10:29)
[2017-08-08] MEDS ORDERED: NAPROXEN375 M1 PO (16:39)
[2017-08-08] MEDS ORDERED: IMURAN50 M1 PO (16:41)
[2017-08-08] MEDS ORDERED: PREDNISONE5 M1 PO (16:43)
[2017-08-08] MEDS ORDERED: COLESTIPOL HCL1 G2 PO (16:45)
== END 2017-04-30 12:26 ==
LOC: EDMED 09:39
PROVIDERS: Emergency Medicine
DX: J18.9 Pneumonia, unspecified organism (principal); R10.11 Right upper quadrant pain; R10.31 Right lower quadrant pain; G89.29 Other chronic pain; F17.210 Nicotine dependence, cigarettes, uncomplicated; Z90.49 Acquired absence of other specified parts of digestive tract; Z79.899 Other long term (current) drug therapy
CPT/HCPCS: J1170; J2405; J7030

== ENCOUNTER 2017-05-08 10:17 | Emergency (ER) | payer MEDICAID ==
[2017-05-10] MEDS ORDERED: ZOFRAN ODT4 MG PO (12:36)
[2017-05-10] MEDS ORDERED: NORCO 5/3251 TAB PO (12:36)
[2017-05-28] MEDS ORDERED: HYDROCODON-ACE1 EA16 PO (10:07)
[2017-05-28] MEDS ORDERED: RANITIDINE HCL150 M3 PO (10:07)
[2017-05-28] MEDS ORDERED: ZOFRAN ODT4 MG PO ×2 (10:07→11:27)
[2017-05-28] MEDS ORDERED: IBUPROFEN200 M2 PO (10:08)
[2017-06-13] MEDS ORDERED: CIPRO500 M2 PO (13:58)
[2017-06-13] MEDS ORDERED: NORCO 7.5-3251 EACH PO (13:58)
[2017-06-20] MEDS ORDERED: PROMETHAZINE HC25 M3 PO (13:43)
[2017-06-22] MEDS ORDERED: IBUPROFEN600 M1 PO (10:40)
[2017-07-02] MEDS ORDERED: PROMETHAZINE HC25 M3 PO (14:34)
[2017-07-23] MEDS ORDERED: NITROFURANTOIN100 MG PO (12:27)
[2017-08-01] MEDS ORDERED: DELTASONE20 MG PO (10:29)
[2017-08-08] MEDS ORDERED: NAPROXEN375 M1 PO (16:39)
[2017-08-08] MEDS ORDERED: IMURAN50 M1 PO (16:41)
[2017-08-08] MEDS ORDERED: PREDNISONE5 M1 PO (16:43)
[2017-08-08] MEDS ORDERED: COLESTIPOL HCL1 G2 PO (16:45)
== END 2017-05-09 00:26 | disposition left against medical advice (07) ==
LOC: EDMED 10:17
DX: Z53.21 Procedure and treatment not carried out due to patient leaving prior to being seen by health care provider (principal)

== ENCOUNTER 2017-05-10 09:13 | Emergency (ER) | payer MEDICAID ==
[2017-05-10 10:18] LABS: BASO % 0.2 % (0-2); EOS % 2.8 % (0-7); EOSINOPHIL ABSOLUTE COUNT 0.2 tho/cmm (0.0-0.7); HCT-HEMATOCRIT 40.3 % (34.0-49.0); HGB-HEMOGLOBIN 13.1 gm/dl (12.0-15.5); IMMATURE GRANULOCYTES ABSOLUTE 0.02 tho/cmm (0-0.03); IMMATURE GRANULOCYTES PERCENT 0.2 % (0-0.3); LYMPH % 35.4 % (20-45); LYMPH ABSOLUTE COUNT 2.9 tho/cmm (0.8-4.5); MCH (MEAN CORPUSCULAR HGB) 26.8 pg (28.0-32.0); MCHC MEAN CORPUSCULAR HGB CONC 32.5 % (32.0-36.0); MCV (MEAN CELL VOLUME) 82.6 fl (82.0-96.0); MEAN PLATELET VOLUME 9.7 cmc (9.4-12.4); MONO % 4.1 % (0-12); MONOCYTE ABSOLUTE COUNT 0.3 tho/cmm (0.0-1.2); NEUTROPHIL ABSOLUTE COUNT 4.6 tho/cmm (1.6-8.0); NEUTROPHIL-AUTOMATED 4.6 tho/cmm (1.6-8.0); NEUTROPHILS % 57.3 % (40-80); PLATELET COUNT 318 tho/cmm (150-450); RED BLOOD COUNT 4.88 mil/cmm (4.00-5.20); RED CELL DISTRIBUTION WIDTH 15.4 % (12.4-16.4); WHITE BLOOD COUNT 8.1 tho/cmm (4.0-10.0)
[2017-05-10 10:30] LABS: ANION GAP 13 mmol/L (0-20); BLOOD UREA NITROGEN 9 mg/dl (6-24); CALCIUM 9.1 mg/dl (8.5-10.5); CARBON DIOXIDE-VENOUS 24 mmol/L (22-32); CHLORIDE 106 mmol/l (96-110); GLUCOSE 90 mg/dL (70-110); POTASSIUM 4.1 mmol/L (3.7-5.1); SODIUM 139 mmol/L (135-145); eGFR VALUE FOR BLACK >90 mL/Min
[2017-05-10] MEDS ORDERED: NORCO 5/3251 TAB PO (12:36)
[2017-05-10] MEDS ORDERED: ZOFRAN ODT4 MG PO (12:36)
[2017-05-28] MEDS ORDERED: ZOFRAN ODT4 MG PO ×2 (10:07→11:27)
[2017-05-28] MEDS ORDERED: RANITIDINE HCL150 M3 PO (10:07)
[2017-05-28] MEDS ORDERED: HYDROCODON-ACE1 EA16 PO (10:07)
[2017-05-28] MEDS ORDERED: IBUPROFEN200 M2 PO (10:08)
[2017-06-13] MEDS ORDERED: NORCO 7.5-3251 EACH PO (13:58)
[2017-06-13] MEDS ORDERED: CIPRO500 M2 PO (13:58)
[2017-06-20] MEDS ORDERED: PROMETHAZINE HC25 M3 PO (13:43)
[2017-06-22] MEDS ORDERED: IBUPROFEN600 M1 PO (10:40)
[2017-07-02] MEDS ORDERED: PROMETHAZINE HC25 M3 PO (14:34)
[2017-07-23] MEDS ORDERED: NITROFURANTOIN100 MG PO (12:27)
[2017-08-01] MEDS ORDERED: DELTASONE20 MG PO (10:29)
[2017-08-08] MEDS ORDERED: NAPROXEN375 M1 PO (16:39)
[2017-08-08] MEDS ORDERED: IMURAN50 M1 PO (16:41)
[2017-08-08] MEDS ORDERED: PREDNISONE5 M1 PO (16:43)
[2017-08-08] MEDS ORDERED: COLESTIPOL HCL1 G2 PO (16:45)
== END 2017-05-10 12:40 ==
LOC: EDMED 09:13
PROVIDERS: Emergency Medicine
DX: K50.90 Crohn's disease, unspecified, without complications (principal); F17.200 Nicotine dependence, unspecified, uncomplicated; Z90.49 Acquired absence of other specified parts of digestive tract
CPT/HCPCS: J1170; J1200; J2405; J7030

== ENCOUNTER 2017-05-21 09:14 | Emergency (ER) | payer MEDICAID ==
[2017-05-21 10:04] LABS: URINE BILIRUBIN NEGATIVE (NEG); URINE BLOOD SMALL (NEG); URINE GLUCOSE (UA) NEGATIVE (NEG); URINE KETONE SMALL (NEG); URINE LEUKOCYTE ESTERASE POSITIVE (NEG); URINE NITRITE NEGATIVE (NEG); URINE PROTEIN SMALL (NEG)
[2017-05-21 10:04] LABS: BASO % 0.2 % (0-2); EOS % 2.1 % (0-7); EOSINOPHIL ABSOLUTE COUNT 0.2 tho/cmm (0.0-0.7); HCT-HEMATOCRIT 39.9 % (34.0-49.0); HGB-HEMOGLOBIN 13.1 gm/dl (12.0-15.5); IMMATURE GRANULOCYTES ABSOLUTE 0.02 tho/cmm (0-0.03); IMMATURE GRANULOCYTES PERCENT 0.2 % (0-0.3); LYMPH % 29.8 % (20-45); LYMPH ABSOLUTE COUNT 2.6 tho/cmm (0.8-4.5); MCH (MEAN CORPUSCULAR HGB) 27.1 pg (28.0-32.0); MCHC MEAN CORPUSCULAR HGB CONC 32.8 % (32.0-36.0); MCV (MEAN CELL VOLUME) 82.4 fl (82.0-96.0); MEAN PLATELET VOLUME 9.8 cmc (9.4-12.4); MONO % 6.6 % (0-12); MONOCYTE ABSOLUTE COUNT 0.6 tho/cmm (0.0-1.2); NEUTROPHIL ABSOLUTE COUNT 5.2 tho/cmm (1.6-8.0); NEUTROPHIL-AUTOMATED 5.2 tho/cmm (1.6-8.0); NEUTROPHILS % 61.1 % (40-80); PLATELET COUNT 346 tho/cmm (150-450); RED BLOOD COUNT 4.84 mil/cmm (4.00-5.20); RED CELL DISTRIBUTION WIDTH 15.4 % (12.4-16.4); WHITE BLOOD COUNT 8.6 tho/cmm (4.0-10.0)
[2017-05-21 10:05] LABS: URINE APPEARANCE HAZY; URINE COLOR YELLOW
[2017-05-21 10:20] LABS: PREGNANCY-SERUM NEGATIVE (NEGATIVE)
[2017-05-21 10:22] LABS: ALBUMIN 3.7 g/dl (3.5-5.0); ALKALINE PHOSPHATASE 124 U/L (33-138); ALT/SGPT 79 U/L (12-78); ANION GAP 13 mmol/L (0-20); AST/SGOT 44 U/L (10-40); BILIRUBIN,TOTAL 0.4 mg/dl (0-1.5); BLOOD UREA NITROGEN 10 mg/dl (6-24); CALCIUM 9.3 mg/dl (8.5-10.5); CARBON DIOXIDE-VENOUS 23 mmol/L (22-32); CHLORIDE 108 mmol/l (96-110); CREATININE 1.02 mg/dl (0.50-1.10); GLUCOSE 118 mg/dL (70-110); LIPASE 98 U/L (73-393); POTASSIUM 3.9 mmol/L (3.7-5.1); SODIUM 140 mmol/L (135-145); eGFR VALUE FOR BLACK 87 mL/Min
[2017-05-21 10:23] LABS: URINE BACTERIA 1+; URINE EPITHELIAL CELLS 15-20 /[HPF] (0-10)
[2017-05-21 10:40] LABS: URINE BILIRUBIN NEGATIVE (NEG); URINE BLOOD NEGATIVE (NEG); URINE GLUCOSE (UA) NEGATIVE (NEG); URINE KETONE NEGATIVE (NEG); URINE LEUKOCYTE ESTERASE NEGATIVE (NEG); URINE NITRITE NEGATIVE (NEG); URINE PROTEIN NEGATIVE (NEG); URINE SPECIFIC GRAVITY 1.025 (1.003-1.030)
[2017-05-21 10:42] LABS: URINE APPEARANCE CLEAR; URINE COLOR YELLOW
[2017-05-21] MEDS ORDERED: ZOFRAN ODT4 MG PO (11:02)
[2017-05-28] MEDS ORDERED: HYDROCODON-ACE1 EA16 PO (10:07)
[2017-05-28] MEDS ORDERED: ZOFRAN ODT4 MG PO ×2 (10:07→11:27)
[2017-05-28] MEDS ORDERED: RANITIDINE HCL150 M3 PO (10:07)
[2017-05-28] MEDS ORDERED: IBUPROFEN200 M2 PO (10:08)
[2017-06-13] MEDS ORDERED: CIPRO500 M2 PO (13:58)
[2017-06-13] MEDS ORDERED: NORCO 7.5-3251 EACH PO (13:58)
[2017-06-20] MEDS ORDERED: PROMETHAZINE HC25 M3 PO (13:43)
[2017-06-22] MEDS ORDERED: IBUPROFEN600 M1 PO (10:40)
[2017-07-02] MEDS ORDERED: PROMETHAZINE HC25 M3 PO (14:34)
[2017-07-23] MEDS ORDERED: NITROFURANTOIN100 MG PO (12:27)
[2017-08-01] MEDS ORDERED: DELTASONE20 MG PO (10:29)
[2017-08-08] MEDS ORDERED: NAPROXEN375 M1 PO (16:39)
[2017-08-08] MEDS ORDERED: IMURAN50 M1 PO (16:41)
[2017-08-08] MEDS ORDERED: PREDNISONE5 M1 PO (16:43)
[2017-08-08] MEDS ORDERED: COLESTIPOL HCL1 G2 PO (16:45)
== END 2017-05-21 11:13 ==
LOC: EDMED 09:14
PROVIDERS: Emergency Medicine
DX: K50.90 Crohn's disease, unspecified, without complications (principal); K21.9 Gastro-esophageal reflux disease without esophagitis; F17.210 Nicotine dependence, cigarettes, uncomplicated; Z90.49 Acquired absence of other specified parts of digestive tract
CPT/HCPCS: J1170; J2405; J7030; P9612

== ENCOUNTER 2017-08-13 05:59 | Day surgery (SDC) | payer MEDICAID ==
[~2017-08-13] VITALS: Ht 180.3 cm; Wt 113.0 kg
[~2017-08-13 05:59] MED LIST changes: +CIPRO500 M2 PO; +COLESTIPOL HCL1 G2 PO; +DELTASONE20 MG PO; +IBUPROFEN200 M2 PO; +IMURAN50 M1 PO; +NAPROXEN375 M1 PO; +NITROFURANTOIN100 MG PO; +NORCO 7.5-3251 EACH PO; +PROMETHAZINE HC25 M3 PO; +RANITIDINE HCL150 M3 PO
[2017-08-13 06:40] LABS: ANION GAP 9 mmol/L (0-20); BLOOD UREA NITROGEN 8 mg/dl (6-24); CALCIUM 9.1 mg/dl (8.5-10.5); CARBON DIOXIDE-VENOUS 27 mmol/L (22-32); CHLORIDE 103 mmol/l (96-110); CREATININE 0.92 mg/dl (0.50-1.10); GLUCOSE 100 mg/dL (70-110); POTASSIUM 3.7 mmol/L (3.7-5.1); SODIUM 135 mmol/L (135-145); eGFR VALUE FOR BLACK >90 mL/Min
[2017-08-13 09:44] LABS: BASO % 0.3 % (0-2); EOSINOPHIL ABSOLUTE COUNT 0.2 tho/cmm (0.0-0.7); HCT-HEMATOCRIT 38.9 % (34.0-49.0); HGB-HEMOGLOBIN 12.3 gm/dl (12.0-15.5); IMMATURE GRANULOCYTES ABSOLUTE 0.01 tho/cmm (0-0.03); IMMATURE GRANULOCYTES PERCENT 0.2 % (0-0.3); LYMPH % 32.2 % (20-45); MCH (MEAN CORPUSCULAR HGB) 26.1 pg (28.0-32.0); MCHC MEAN CORPUSCULAR HGB CONC 31.6 % (32.0-36.0); MCV (MEAN CELL VOLUME) 82.6 fl (82.0-96.0); MEAN PLATELET VOLUME 10.1 cmc (9.4-12.4); MONO % 7.6 % (0-12); MONOCYTE ABSOLUTE COUNT 0.5 tho/cmm (0.0-1.2); NEUTROPHIL ABSOLUTE COUNT 3.6 tho/cmm (1.6-8.0); NEUTROPHIL-AUTOMATED 3.6 tho/cmm (1.6-8.0); NEUTROPHILS % 56.7 % (40-80); PLATELET COUNT 368 tho/cmm (150-450); RED BLOOD COUNT 4.71 mil/cmm (4.00-5.20); RED CELL DISTRIBUTION WIDTH 15.1 % (12.4-16.4); WHITE BLOOD COUNT 6.3 tho/cmm (4.0-10.0)
[2017-08-13 10:24] LABS: ALB/GLOB RATIO 0.8 (0.8-2.0); ALBUMIN 3.6 g/dl (3.5-5.0); ALKALINE PHOSPHATASE 157 U/L (33-138); ALT/SGPT 70 U/L (12-78); AST/SGOT 64 U/L (10-40); BILIRUBIN,DIRECT <0.1 mg/dl (0.0-0.3); BILIRUBIN,INDIRECT 0.3 mg/dL (0.0-1.0); BILIRUBIN,TOTAL 0.4 mg/dl (0-1.5)
== END 2017-08-13 09:00 ==
LOC: ENDOS 05:59 → SHSC 05:59 → ENDOS 07:35 → EDSTATUS 08:00 → ENDOS 08:00
PROVIDERS: Anesthesiology; Specialist
PROC: 0DBB8ZX Excision of Ileum, Via Natural or Artificial Opening Endoscopic, Diagnostic (ICD-10-PCS; principal; 2017-08-13)
PROC: 0DBE8ZX Excision of Large Intestine, Via Natural or Artificial Opening Endoscopic, Diagnostic (ICD-10-PCS; 2017-08-13)
DX: K63.89 Other specified diseases of intestine (principal); K64.8 Other hemorrhoids; E55.9 Vitamin D deficiency, unspecified; G40.909 Epilepsy, unspecified, not intractable, without status epilepticus; J45.909 Unspecified asthma, uncomplicated; K21.9 Gastro-esophageal reflux disease without esophagitis; F17.210 Nicotine dependence, cigarettes, uncomplicated; Z79.1 Long term (current) use of non-steroidal anti-inflammatories (NSAID); Z79.52 Long term (current) use of systemic steroids; Z79.899 Other long term (current) drug therapy; Z88.0 Allergy status to penicillin; Z88.5 Allergy status to narcotic agent